=== PATIENT | male | born 1960 | race Caucasian/White ===

== ENCOUNTER 2024-11-19 17:23 | Emergency (ER) | payer OTHER ==
[2024-11-19 17:51] LABS: Absolute Lymphocytes (CBC) 0.8 K/uL (0.7-4.9); Hematocrit 40.5 % (39.6-49.0); Hemoglobin 13.9 g/dL (13.6-17.9); MCH 37.4 pg (27.0-35.0); MCHC 34.2 g/dL (32.0-36.0); MCV 109.2 fL (80-100); MPV 10.8 fL (7.6-11.3); RBC Red Blood Cell Count 3.71 M/uL (4.33-5.43); White Blood Count 4.60 thou/uL (4.3-10.9)
[2024-11-19] MEDS ORDERED: CEFEPIME 2 GM VIAL ONE (18:01)
[2024-11-19] MEDS ORDERED: NA CHLORIDE 0.9% 250 ML ONE (18:02)
[2024-11-19] MEDS ORDERED: NA CHLORIDE 0.9% 1,000 ML ONE ×2 (18:02→18:16)
[2024-11-19] MEDS ORDERED: VANCOMYCIN 1 GM/VIAL ONE (18:02)
[2024-11-19] MEDS ORDERED: NA CHLORIDE 0.9% 100 ML ONE (18:02)
[2024-11-19] MEDS ORDERED: D5W 100 ML IV ONE (18:30)
[2024-11-19] MEDS ORDERED: AMIODARONE HCL 150 MG/3 ML INJ IV ONE (18:30)
[2024-11-19] MEDS ORDERED: AMIODARONE IN DEXTROSE,ISO-OSM 360 MG/200 ML BAG IV ONE (18:30)
[2024-11-19 18:35] LABS: PT Prothrombin Time 19.5 SECONDS (10-13.0); PTT, Activated Partial Thromb 21.0 SECONDS (27.2-37.4); Protime INR 1.75
[2024-11-19 18:35] LABS: Arterial Blood Carboxyhemoglob 1.8 % (0.0-1.5); Blood Gas Inspired Oxygen 28.0 %; Blood Gas Oxyhemoglobin 97.6 % (94.0-97.0); Blood O2 Saturation 99.5 % (92.0-98.5)
[2024-11-19] MEDS ORDERED: D5W 1,000 ML IV ONE (18:45)
[2024-11-19 18:54] LABS: Differential Total Cells Count 100
[2024-11-19 18:55] LABS: Blood Morphology Comment NOTED (NOT SEEN); Macrocytosis 1+; Polychromasia 1+; Segmented Neutrophils 60 % (40-80); Toxic Granulation 1+
[2024-11-19 18:59] LABS: ALT/SGPT 25 U/L (16-61); Albumin 2.2 g/dL (3.4-5.0); Albumin/Globulin Ratio 0.5 (1.1-1.8); Alkaline Phosphatase 84 U/L (45-117); Anion Gap 31.8 mEq/L (5.0-15.0); BUN Blood Urea Nitrogen 77 mg/dL (7-18); Globulin 4.5 g/dL (2.3-3.5); Glucose Level 159 mg/dL (74-106); NT PRO-BNP 3903 pg/mL (<125); Potassium 3.8 mEq/L (3.5-5.1); Troponin High Sensitivity 19.7 pg/mL (<58.9)
[2024-11-19 19:11] LABS: AST/SGOT 39 U/L (15-37)
[2024-11-19 19:21] LABS: Sqamous Epithelial <5 /HPF (None Seen); Urine Culture Reflex Order REFLEXED; Urine Microscopic Reflex YN ORDER UMIC
[2024-11-19 19:31] LABS: METHAMPHETAM NEGATIVE (NEGATIVE); THC Cannibis NEGATIVE (NEGATIVE)
[2024-11-19] MEDS ORDERED: DIGOXIN 0.25 MG/ML AMP ONE (19:48)
--- NOTE | 2024-11-19 20:05 | ER ---
Nurse's Notes [facility] Name: Apollo Antonio Age: 64 yrs Sex: Male : 1960 Arrival Date: 11/19/2024 Time: 17:23 Bed 4 Private MD: Diagnosis: Acute kidney failure, unspecified;Metabolic acidemia, unspecified;Acidosis;Hypo-osmolality and hyponatremia;UTI/ Urinary tract infection, site not specified Presentation: 11/19 17:25 Risk Assessment: Do you want to hurt yourself or someone else? Unable to obtain. aa5 17:25 Acuity: CHAD 2 aa5 17:25 Chief complaint: EMS states: "was found lying down covered in feces and urine after aa5 going to friend's house to drink, pt has been on the ground for approximately 4 days". Coronavirus screen: unable to complete, pt confused. Ebola Screen: Patient denies travel to an Ebola-affected area in the 21 days before illness onset. Initial Sepsis Screen: Does the patient meet any 2 criteria? Altered Mental Status. HR > 90 bpm. Yes Does the patient have a suspected source of infection?. Onset of symptoms was November 19, 2024. 17:25 Method Of Arrival: EMS: [facility] aa5 Historical: - Allergies: 18:14 No Known Allergies; dr5 - PMHx: 18:14 Hypertensive disorder; Alcoholism; Atrial fibrillation; dr5 - Immunization history:: Adult Immunizations unknown. - Infectious Disease History:: unknown. - Social history:: Smoking status: unknown. Screenin:25 [facility] ED Fall Risk Assessment (Adult) History of falling in the last 3 months, aa5 including since admission Confusion or Disorientation Yes (5 pts) Intoxicated or Sedated Impaired Gait Mobility Assist Device Used Altered Elimination Score/Fall Risk Level 3 or more points = High Risk Oriented to surroundings, Maintained a safe environment, Educated pt \\T\\ family on fall prevention, incl call for assistance when getting out of bed, Assessed \\T\\ reinforced patient's understanding of fall precautions. Abuse screen: unable to obtain, pt confused. 17:25 Nutritional screening: possible no oral intake x 4 days . Tuberculosis screening: aa5 unable to obtain, pt confused. . Assessment: 17:25 General: Appears uncomfortable, unkempt, Behavior is calm, cooperative. Pain: Denies aa5 pain. Neuro: Level of Consciousness is awake, confused, Oriented to person. Cardiovascular: Heart tones S1 S2 present Rhythm is atrial fibrillation with rapid ventricular response. Respiratory: Airway is patent Respiratory effort is even, unlabored, Respiratory pattern is regular, symmetrical, tachypnea. GI: Abdomen is flat, non-distended. : Lesions noted on penis. EENT: Oral mucosa is dry. Derm: Skin is dry, Skin is mottled, pale, Skin temperature is cool Multiple wounds noted to sacral area, appear to be tunneling, with foul smelling drainage noted. Abrasions noted to whole back area with multiple wounds noted. Multiple plastic bottle caps were noted stuck to pt's back upon inspection, maggots were found upon removing bottle caps and wounds were exposed. Unable to complete full inspection of wounds due to pt's critical condition at this time. Musculoskeletal: Range of motion: limited in all extremities. 17:45 Reassessment: Pt was cleaned with soap and water to remove feces all over body. Clean aa5 gown applied. Pt tolerated well. . 18:00 Neuro: Level of Consciousness is awake, confused, Oriented to person. Respiratory: aa5 Airway is patent Respiratory effort is even, unlabored, Respiratory pattern is tachypnea. Derm: Skin is dry, Skin is mottled, pale, Skin temperature is cool. 18:00 Cardiovascular: Rhythm is atrial fibrillation with rapid ventricular response. aa5 18:30 Reassessment: Pt was placed on bi-pap by RT, pt tolerating well. . aa5 19:00 Reassessment: Patient appears in no apparent distress at this time. No changes from 4 previously documented assessment. Patient and/or family updated on plan of care and expected duration. Pain level reassessed. Patient is alert, oriented x 3, equal unlabored respirations, skin warm/dry/pink. 20:12 Reassessment: Attempted to call report. States they were in shift report and asked to 4 call back in 15 minutes. Vital Signs: 17:25 BP 93 / 61; Pulse 157; Resp 28 S; Pulse Ox 97% on R/A; aa5 17:55 BP 70 / 59; Pulse 137; Resp 26 S; Pulse Ox 97% on R/A; aa5 18:05 BP 92 / 67; Pulse 136; Resp 26 S; Pulse Ox 97% on R/A; aa5 18:11 Weight 58.97 kg; dr5 18:13 BP 78 / 59; Pulse 137; Resp 28 S; Pulse Ox 98% on R/A; aa5 18:20 BP 79 / 64; Pulse 136; aa5 18:30 BP 120 / 95; Pulse 144; aa5 18:40 BP 103 / 83; Pulse 127; Resp 28 S; Pulse Ox 98% on R/A; aa5 18:42 BP 120 / 95; Pulse 145; rn 19:00 BP 96 / 83; Pulse 136; Temp 94.7(Ca); aa5 19:24 BP 107 / 86; Pulse 132; Temp 95.7; vc1 19:31 Resp 24; Pulse Ox 99% ; vc1 20:00 BP 102 / 83; Pulse 138; Resp 26; Pulse Ox 99% on BiPAP; cp4 20:30 BP 147 / 107; Pulse 69; Resp 26; Pulse Ox 100% on BiPAP; cp4 21:00 BP 105 / 68; Pulse 111; Resp 26; Pulse Ox 100% on BiPAP; cp4 ED Course: 17:25 Patient arrived in ED. em1 17:25 Arm band placed on Patient placed in an exam room, on a stretcher. aa5 17:25 Patient has correct armband on for positive identification. Bed in low position. Side aa5 rails up X2. Client placed on continuous cardiac and pulse oximetry monitoring. NIBP monitoring applied. educational audiologist on. Pulse ox on. NIBP on. 17:26 [facility] dr5 17:26 Mohan Burdick MD is Attending Physician. dr5 17:56 EKG done, by ED staff, reviewed by Mohan Burdick MD. aa5 18:01 First set of blood cultures drawn by ED staff. aa5 18:05 Inserted 18G midline to left upper arm inserted by Dave Givens NP. aa5 18:09 Radiology exam delayed due to pt not being stable for CT at this time, per . mw3 18:28 Second set of blood cultures drawn by from central line. aa5 18:28 Assisted provider with central line placement. Set up central line tray. Triple lumen aa5 line placed in right femoral. Line placed by Mohan Burdick MD Placement verified by blood return, Dressed with Tegaderm, Blood was collected. Patient tolerated well. 18:40 Mile Black, NILSON is Primary Nurse. aa5 18:45 Thermoregulation: Wilfred blanket applied. aa5 19:00 Veloz cath inserted, using sterile technique, 16 Fr., by ED staff, balloon inflated, to aa5 gravity drainage, urine specimen collected. Patient tolerated well. 19:00 One-on-one care X 90 minutes. aa5 19:00 Report given to NILSON Quiros and NILSON Pineda. aa5 19:12 Chest Single View XRAY In Process Unspecified. EDMS 19:21 Initiated transfer with Jade at [facility]. rv1 19:29 Triage completed. aa5 19:40 Doc to Doc with Restaurant District Manager at [facility]. rv1 20:[address] Velázquez to [place] [id number] Bed 11. rv1 21:47 Patient transferred, IV remains in place. cp4 21:47 Provided Education on: transfer. cp4 08 17:53 Notified ED physician of a critical lab result(s). 3 of 4 bottles blood cultures ll1 positive. Gram negative rods and gram positive cocci in clusters. Dr. Doll informed. Administered Medications: 11/19 18:05 Drug: Cefepime IVPB 2 grams IVPB at 200 ml/hr once over 30 mins; (mix in NS 100 mL) aa5 Route: IVPB; Rate: 200 ml/hr; Infused Over: 30 mins; Site: left upper arm; 18:35 Follow up: Response: No adverse reaction; IV Status: Completed infusion aa5 18:05 Drug: NS 0.9% IV (30 ml/kg) 30 ml/kg IV at bolus once; Sepsis Protocol; bolus over 90 aa5 min;subtract amount alr given {Note: VO received to administer NS bolus at 1800.} Route: IV; Rate: bolus; Site: left upper arm; 19:53 Follow up: IV Status: Completed infusion cp4 18:08 CANCELLED (Use 30ml/kg): ns 0.9% 1000 ml IV at 1000 ml once; to be given as a bolus dr5 over 60 minutes 18:09 CANCELLED (Inappropriate at this time): ns 0.9% 1000 ml IV at 1000 ml once; to be given dr5 as a bolus over 60 minutes 18:35 Drug: amiodarone IVPB 150 mg 100 ml IVPB once over 10 mins; (mix in D5W) Volume: 100 aa5 ml; Route: IVPB; Infused Over: 10 mins; Site: right femoral; 18:45 Follow up: IV Status: Completed infusion aa5 18:40 CANCELLED (Duplicate Order): ns 0.9% (30 ml/kg) 30 ml/kg IV at bolus once; Sepsis rn Protocol; to be given as a bolus over 90 minutes 18:42 Not Given (Duplicate Order): Sodium Bicarb 8.4% - sodium bicarbonate1 amp 10 ml IVP rn once; Not IVP, sub-Q administration with Lidocaine to wound 18:45 Drug: vancoMYCIN IVPB 1 grams IVPB once over 2 hrs Route: IVPB; Infused Over: 2 hrs; aa5 Site: right femoral; 19:00 Follow up: Response: No adverse reaction aa5 21:19 Follow up: IV Status: Completed infusion cp4 18:45 Drug: amiodarone IVPB 900 mg, D5W IV 500 ml IVPB at 1 mg/min continuous; for 6 hrs, aa5 then change to 0.5 mg/min Route: IVPB; Rate: 1 mg/min; Site: right femoral; 21:20 Follow up: IV Status: Infusion continued upon transfer cp4 18:50 Drug: D5W IV 1000 ml, Sodium Bicarbonate IVP 150 mEq IV at 150 ml/hr continuous Route: aa5 IV; Rate: 150 ml/hr; Site: right forearm; 21:20 Follow up: IV Status: Infusion continued upon transfer cp4 18:50 Drug: Sodium Bicarbonate IVP 1 amp IVP once; (50 mL); equals 50 mEq Route: IVP; Site: aa5 right femoral; 19:00 Follow up: Response: No adverse reaction aa5 19:53 Drug: Digoxin IVP 0.5 mg IVP once Route: IVP; Site: right femoral; cp4 21:20 Follow up: Response: No adverse reaction cp4 Medication: 21:47 VIS not applicable for this client. cp4 Outcome: 20:05 ER care complete, transfer ordered by MD. issa 21:47 Transferred by ground EMS to [facility], Transfer form completed. cp4 X-rays sent w/ patient. 21:47 Condition: stable 21:47 Instructed on the need for transfer, 21:48 Patient left the ED. cp4 Addendum: 11/21/2024 08:49 Addendum: Culture Results: Positive blood culture. faxed to [facility] [address] [place] [address] bed 11 b d fx:[phone]. Signatures: Dispatcher [employer] EDMS Francisca Ashton, Quentin em1 Mile Black, RN RN aa5 Randa Lopes mw3 Juani Castro RN RN ll1 Elissa Silverio RN RN vc1 Barbra Pierre rv1 Miriam Cano cp4 Vitor Laureano, DIRECTOR OF ENTERPRISE APPLICATIONS-C DIRECTOR OF ENTERPRISE APPLICATIONS-Cdr5 Mohan Burdick MD digital intern: (The following items were deleted from the chart) 11/19 18:10 18:09 Radiology exam delayed due to PER pt is not stable enough for CT at this time 3 3 19:34 18:00 BP 70 / 59; Pulse 137bpm; Resp 26bpm; Spontaneous; Pulse Ox 97% RA; aa5 aa5 19:34 18:55 BP 96 / 83; Pulse 136bpm; aa5 aa5
--- NOTE | 2024-11-19 20:05 | EDPHYS ---
Physician Documentation [facility] Name: Apollo Antonio Age: 64 yrs Sex: Male : 1960 Arrival Date: 11/19/2024 Time: 17:23 Bed 4 Private MD: ED Physician Mohan Burdick HPI: 11/19 18:02 This 64 yrs old Male presents to ER via EMS with complaints of lethargy. dr5 18:02 Onset: The symptoms/episode began/occurred acutely. dr5 18:12 Patient is brought in by [facility] and found to be lethargic and laying in stool over dr5 the past 4 days. EMS reports that friend called EMS for him. Upon arrival patient is tachypneic, alert and oriented x 1, responds to name. EMS states that he was surrounded by hard liquor and beer. Previous note from admission from October 2014 reports he was admitted for A-fib with RVR, alcoholic hepatitis, and hypertension.. Historical: - Allergies: 18:14 No Known Allergies; dr5 - PMHx: 18:14 Hypertensive disorder; Alcoholism; Atrial fibrillation; dr5 - Immunization history:: Adult Immunizations unknown. - Infectious Disease History:: unknown. - Social history:: Smoking status: unknown. ROS: 18:14 Constitutional: as per hpi dr5 Exam: 18:14 Constitutional: This is a poor nourished patient who is awake, alert, and in moderate dr5 acute distress. Head/Face: Normocephalic, atraumatic. Patient is disheveled Eyes: Pupils equal round and reactive to light, patient tracks when speaking to him Chest/axilla: Normal chest wall appearance and motion. Nontender with no deformity. No lesions are appreciated. Cardiovascular: Irregular rate and tachycardic rhythm. Patient's heart rate ranged between 130 and 150 with A-fib RVR. 18:14 Respiratory: moderate respiratory distress is noted, Respirations: labored breathing, that is moderate, accessory muscle usage, that is moderate, Respiratory rate: 42 18:14 Abdomen/GI: Inspection: abdomen appears normal, Bowel sounds: normal, Palpation: abdomen is soft and non-tender, soft, 18:14 Back: 18:14 Back: pain, that is mild, that is moderate, of the thoracic area, 18:14 : Male external genitalia: normal, no abrasion, no discharge, no erythema, no injury, no swelling, no tenderness, no evidence of ulceration, Mile RN present during exam, 18:14 Skin: injury, Bottlecap embedded in middle of upper back causing indentation and tenderness to palpation., Decubitus ulcer noted to back. 3 separate holes with tunneling also noted to the lumbar region. Generalized rash and redness to back. Indentation in cavity noted where bottle cap was with maggots in wound.. 18:14 Neuro: Orientation: to person, Mentation: slow to respond, confused, Memory: unable to test, Cranial nerves: unable to test, Cerebellar function: unable to test, Motor: unable to test, 18:47 ECG was reviewed by the Attending Physician. rn Vital Signs: 17:25 BP 93 / 61; Pulse 157; Resp 28 S; Pulse Ox 97% on R/A; aa5 17:55 BP 70 / 59; Pulse 137; Resp 26 S; Pulse Ox 97% on R/A; aa5 18:05 BP 92 / 67; Pulse 136; Resp 26 S; Pulse Ox 97% on R/A; aa5 18:11 Weight 58.97 kg; dr5 18:13 BP 78 / 59; Pulse 137; Resp 28 S; Pulse Ox 98% on R/A; aa5 18:20 BP 79 / 64; Pulse 136; aa5 18:30 BP 120 / 95; Pulse 144; aa5 18:40 BP 103 / 83; Pulse 127; Resp 28 S; Pulse Ox 98% on R/A; aa5 18:42 BP 120 / 95; Pulse 145; rn 19:00 BP 96 / 83; Pulse 136; Temp 94.7(Ca); aa5 19:24 BP 107 / 86; Pulse 132; Temp 95.7; vc1 19:31 Resp 24; Pulse Ox 99% ; vc1 20:00 BP 102 / 83; Pulse 138; Resp 26; Pulse Ox 99% on BiPAP; cp4 20:30 BP 147 / 107; Pulse 69; Resp 26; Pulse Ox 100% on BiPAP; cp4 21:00 BP 105 / 68; Pulse 111; Resp 26; Pulse Ox 100% on BiPAP; cp4 Procedures: 18:27 Central Line: the site was prepped with Betadine, in sterile fashion, a triple lumen rn catheter was inserted, in the right femoral vein, in 1 attempts. placement was verified, by blood return, the site was dressed with Tegaderm, using sterile technique, the patient tolerated the procedure, well, Performed by Dr. Burdick. MDM: 17:26 Medical Screening Exam initiated dr5 18:14 Differential Diagnosis altered mental status, sepsis, Alcoholism, A-Fib w/RVR, Sepsis, dr5 PNA, Dehydration, Hypokalemia, Septic Shock. Data reviewed: vital signs, nurses notes. Data reviewed: I have discussed the patient's presentation/case with the attending Emergency Department Physician;. Consideration of Admission/Observation Patient was admitted/placed on observation. 19:52 Management of patient was discussed with the following: Hospitalist: Dr. Stone dr5 ([facility]) accepted patient to ICU. I considered the following discharge prescriptions or medication management in the emergency department I discussed and recommended Over The Counter medications, Medications were administered in the Emergency Department. See MAR. Test considered but Not performed: CT: Patient not stable for CT scan. External Records Reviewed: Inpatient record: Reviewed inpatient record from 10 years ago at this [facility].. Care significantly affected by the following chronic conditions: Hypertension, A-fib. Care significantly affected by the following Social Determinants of Health: Poor access to healthcare and/or lack of insurance, Poor access to transportation, Misuse of alcohol and/or drugs, Problems related to employment. Counseling: I had a detailed discussion with the patient and/or guardian regarding the historical points, exam findings, and any diagnostic results supporting the discharge/admit diagnosis, the presence of at least one elevated blood pressure reading (>120/80) during this emergency department visit, lab results, radiology results, the need to transfer to another facility, for higher level of care, [facility] does not immediately have the required specialist, Discussed case with attending and joint decision made to transfer patient due to lack of respiratory therapy overnight. Patient requires BiPAP and no respiratory therapy available overnight.. Medication response: Sodium bicarb, cefepime, Vancomycin, amiodarone, digoxin. Response to treatment: the patient's symptoms have mildly improved after treatment. ED course: Report given to [facility]. Will transfer patient with BiPAP. Will hold CT scan due to patient not being stable.. 11/19 17:28 Order name: BNP; Complete Time: 19:12 dr5 11/19 17:28 Order name: Blood Culture Adult (2) dr5 11/19 17:28 Order name: CBC with Diff; Complete Time: 18:58 [facility] 11/19 17:28 Order name: CMP; Complete Time: 19:12 [facility] 11/19 17:28 Order name: Lactate w/ 2H reflex if indic.; Complete Time: 19:01 [facility] 11/19 17:28 Order name: Protime (+inr); Complete Time: 18:36 [facility] 11/19 17:28 Order name: Ptt, Activated; Complete Time: 18:36 [facility] 11/19 17:28 Order name: Troponin HS; Complete Time: 19:12 [facility] 11/19 17:28 Order name: UA Rfx Piotr Cult if indicated; Complete Time: 19:22 [facility] 11/19 17:28 Order name: CPK; Complete Time: 19:12 [facility] 11/19 17:28 Order name: Acetaminophen; Complete Time: 19:12 [facility] 11/19 17:28 Order name: Alcohol Level; Complete Time: 18:42 [facility] 11/19 17:28 Order name: Salicylate; Complete Time: 19:12 [facility] 11/19 17:28 Order name: Urine Drug Screen; Complete Time: 19:33 [facility] 11/19 18:03 Order name: ABG; Complete Time: 18:36 [facility] 11/19 18:56 Order name: Manual Differential; Complete Time: 18:58 [facility] 11/19 19:03 Order name: Ghost Lactate-NO COLLECT Timer; Complete Time: 21:26 [facility] 11/19 19:25 Order name: Urine Culture [facility] 11/19 17:28 Order name: Chest Single View XRAY; Complete Time: 20:36 [facility] 11/19 17:28 Order name: EKG; Complete Time: 17:29 [facility] 11/19 17:28 Order name: Accucheck; Complete Time: 19:20 [facility] 11/19 17:28 Order name: Cardiac monitoring; Complete Time: 19:20 [facility] 11/19 17:28 Order name: Cath; Complete Time: 19:20 [facility] 11/19 17:28 Order name: EKG - Nurse/Tech; Complete Time: 19:20 [facility] 11/19 17:28 Order name: IV Saline Lock - Large Bore; Complete Time: 19:20 [facility] 11/19 17:28 Order name: Labs collected and sent; Complete Time: 19:20 [facility] 11/19 17:28 Order name: O2 Per Protocol; Complete Time: 19: dr5 11/19 17: Order name: O2 Sat Monitoring; Complete Time: 11/19 17: Order name: Vital Signs; Complete Time: : EC:47 Rate is 151 beats/min. Rhythm is irregularly irregular. QT interval is normal. No Q rn waves. T waves are Normal. No ST changes noted. Clinical impression: Atrial Fibrillation. Interpreted by me. Reviewed by me. Administered Medications: 18:05 Drug: Cefepime IVPB 2 grams IVPB at 200 ml/hr once over 30 mins; (mix in NS 100 mL) aa5 Route: IVPB; Rate: 200 ml/hr; Infused Over: 30 mins; Site: left upper arm; 18:35 Follow up: Response: No adverse reaction; IV Status: Completed infusion aa5 18:05 Drug: NS 0.9% IV (30 ml/kg) 30 ml/kg IV at bolus once; Sepsis Protocol; bolus over 90 aa5 min;subtract amount alr given {Note: VO received to administer NS bolus at 1800.} Route: IV; Rate: bolus; Site: left upper arm; 19:53 Follow up: IV Status: Completed infusion cp4 18:08 CANCELLED (Use 30ml/kg): ns 0.9% 1000 ml IV at 1000 ml once; to be given as a bolus dr5 over 60 minutes 18:09 CANCELLED (Inappropriate at this time): ns 0.9% 1000 ml IV at 1000 ml once; to be given dr5 as a bolus over 60 minutes 18:35 Drug: amiodarone IVPB 150 mg 100 ml IVPB once over 10 mins; (mix in D5W) Volume: 100 aa5 ml; Route: IVPB; Infused Over: 10 mins; Site: right femoral; 18:45 Follow up: IV Status: Completed infusion aa5 18:40 CANCELLED (Duplicate Order): ns 0.9% (30 ml/kg) 30 ml/kg IV at bolus once; Sepsis rn Protocol; to be given as a bolus over 90 minutes 18:42 Not Given (Duplicate Order): Sodium Bicarb 8.4% - sodium bicarbonate1 amp 10 ml IVP rn once; Not IVP, sub-Q administration with Lidocaine to wound 18:45 Drug: vancoMYCIN IVPB 1 grams IVPB once over 2 hrs Route: IVPB; Infused Over: 2 hrs; aa5 Site: right femoral; 19:00 Follow up: Response: No adverse reaction aa5 21:19 Follow up: IV Status: Completed infusion cp4 18:45 Drug: amiodarone IVPB 900 mg, D5W IV 500 ml IVPB at 1 mg/min continuous; for 6 hrs, aa5 then change to 0.5 mg/min Route: IVPB; Rate: 1 mg/min; Site: right femoral; 21:20 Follow up: IV Status: Infusion continued upon transfer cp4 18:50 Drug: D5W IV 1000 ml, Sodium Bicarbonate IVP 150 mEq IV at 150 ml/hr continuous Route: aa5 IV; Rate: 150 ml/hr; Site: right forearm; 21:20 Follow up: IV Status: Infusion continued upon transfer cp4 18:50 Drug: Sodium Bicarbonate IVP 1 amp IVP once; (50 mL); equals 50 mEq Route: IVP; Site: aa5 right femoral; 19:00 Follow up: Response: No adverse reaction aa5 19:53 Drug: Digoxin IVP 0.5 mg IVP once Route: IVP; Site: right femoral; cp4 21:20 Follow up: Response: No adverse reaction cp4 Disposition: 18:30 Co-signature as Attending Physician, Mohan Burdick MD I agree with the assessment and rn plan of care. I reviewed the patient's care provided by Advanced Practice Provider \T\ agree w/ the diagnosis \T\ care plan. I personally saw the pt \T\ performed a substantive portion of the visit, incldng all aspects of the (History/Exam/Medical Decision Making). Patient began decompensating, was found to be A-fib RVR with hypotension. This is when I stepped in, placed central line, started amiodarone as well as fluid boluses for resuscitation. Ordered ABG and BiPAP administration. Patient is awake and talking and answering questions and currently protecting airway.. Disposition Summary: 11/19/24 20:05 Transfer Ordered Notes: Transfer Location: [facility] dr5 Reason: Higher level of care dr5 Condition: Critical dr5 Problem: new dr5 Symptoms: have worsened dr5 Accepting Physician: Dr. Stone(11/19/24 21:48) cp4 Diagnosis - Acute kidney failure, unspecified dr5 - Metabolic acidemia, unspecified dr5 - Acidosis dr5 - Hypo-osmolality and hyponatremia dr5 - UTI/ Urinary tract infection, site not specified dr5 Forms: - Medication Reconciliation Form dr5 - SBAR form dr5 Critical care time excluding procedures: 19:52 Critical care time: Bedside Care: 60 minutes. Total time: 60 minutes dr5 Signatures: Dispatcher [employer] EDNY Don Escudero MD MD cha Nieto, Roman, MD MD rn Calderon, Audri, NILSON RN doe5 Miriam Cano Dustin, COMMERCIAL ESTIMATOR-C COMMERCIAL ESTIMATOR-Cdr5 Corrections: (The following items were deleted from the chart) 17:29 17:28 PROBNP+C.LAB.BRZ ordered. EDNY EDMS 17:29 17:28 BLOOD CULTURE*+BA.LAB.BRZ ordered. EDNY EDMS 17:29 17:28 CBC+H.LAB.BRZ ordered. EDNY EDMS 17:29 17:28 COMPREHENSIVE METABOLIC PANEL+C.LAB.BRZ ordered. EDNY EDNY 17:29 17:28 LACTATE+C.LAB.BRZ ordered. EDNY EDMS 17:29 17:28 PROTIME (+INR)+COAG.LAB.BRZ ordered. EDNY EDMS 17:29 17:28 PTT, ACTIVATED+COAG.LAB.BRZ ordered. EDNY EDMS 17:29 17:28 Troponin High Sensitivity+C.LAB.BRZ ordered. EDNY EDMS 17:29 17:28 UA Rfx Piotr Cult if indicated+U.LAB.BRZ ordered. EDNY EDNY 17:29 17:28 CREATINE PHOSPHOKINASE+C.LAB.BRZ ordered. EDNY EDMS 17:46 17:46 Chest Abdomen Pelvis Wo Con+CT.RAD.BRZ ordered. EDNY EDMS 18:07 18:07 BiPap ([employer] Only)+RC.RAD.BRZ ordered. EDNY EDMS 18:08 17:28 NS 0.9% IV 1000 ml IV at 1000 ml once; to be given as a bolus over 60 minutes dr5 ordered. dr5 18:08 18:08 NS 0.9% IV 1000 ml IV at 1000 ml once; to be given as a bolus over 60 minutes dr5 ordered. dr5 18:09 18:01 NS 0.9% IV 1000 ml IV at 1000 ml once; to be given as a bolus over 60 minutes dr5 ordered. rn 18:27 18:27 Central Line: the site was prepped with Betadine, in sterile fashion, a triple rn lumen catheter was inserted, in the right femoral vein, in 1 attempts. placement was verified, by blood return, the site was dressed with Tegaderm, using sterile technique, the patient tolerated the procedure, well, rn 18:40 18:08 NS 0.9% IV (30 ml/kg) 30 ml/kg IV at bolus once; Sepsis Protocol; to be given as rn a bolus over 90 minutes ordered. dr5 20:20 17:29 Head Brain Wo Cont+CT.RAD.BRZ ordered. EDMS EDMS 21:48 20:05 Dr. Stone dr5 cp4
--- NOTE | 2024-11-19 20:29 | RAD REPORT ---
Procedure: Chest Single View HISTORY: Cough COMPARISON: none FINDINGS: Mild left upper lobe opacity. Right lung appears clear of acute infiltrate. No significant pleural effusion noted. The heart is normal size. IMPRESSION: Mild left upper lobe opacity may indicate pneumonia
[2024-11-19 22:47] VITALS: TEMP 95.7
[2024-11-19 22:52] VITALS: O2SAT 100
[2024-11-19 22:53] VITALS: BP 105/68
== END 2024-11-19 21:48 | disposition short-term general hospital (02) ==
LOC: ER 17:23
DX: N17.9 Acute kidney failure, unspecified (principal); N39.0 Urinary tract infection, site not specified; E87.20 Acidosis, unspecified; E87.1 Hypo-osmolality and hyponatremia; F10.20 Alcohol dependence, uncomplicated; I10 Essential (primary) hypertension; I48.91 Unspecified atrial fibrillation
CPT/HCPCS: 93005; 87040 ×2; 87088; 85025; 81001; 87086; 36415; 82550; 87205 ×3; 85610; 83605; 85730; 87077 ×2; 87186 ×2; 84484; 80053; 83880; 80307; 71045; 51702; 99291; 36556; 80143; 80179; 82077; 82805; 36600; 94660; J0282 ×2; J1160; J3370; J0692; J7050; J7030 ×2